=== PATIENT | female | born 1930 | race Caucasian/White ===

== ENCOUNTER 2018-08-14 06:43 | Emergency (ER) | payer MEDICARE, OTHER ==
[~2018-08-14] VITALS: Ht 162.6 cm; Wt 77.1 kg
[2018-08-14 07:06] VITALS: BP 162/84
[2018-08-14] MEDS ORDERED: TRAZODONE HCL300 MG ORAL (07:12)
[2018-08-14] MEDS ORDERED: AQUAPHOR OINTM396 GM TP (07:12)
[2018-08-14] MEDS ORDERED: NIZORAL 2% C1 APPLIC TOPIC (07:12)
[2018-08-14] MEDS ORDERED: KENALOG-4040 MG/ML IARTIC (07:12)
[2018-08-14] MEDS ORDERED: PLAVIX75 MG ORAL (07:12)
[2018-08-14] MEDS ORDERED: NEOSPORIN + P14.2 GM TP (07:12)
[2018-08-14] MEDS ORDERED: ROBAFEN DM CGH118 ML MC (07:12)
[2018-08-14] MEDS ORDERED: IMODIUM A-1 MG/7.5 M PO (07:12)
[2018-08-14] MEDS ORDERED: LEXAPRO5 MG ORAL (07:12)
[2018-08-14] MEDS ORDERED: VITAMIN B125000 MCG PO (07:12)
[2018-08-14] MEDS ORDERED: TYLENOL EXTRA500 MG ORAL ×2 (07:12→09:45)
[2018-08-14] MEDS ORDERED: LORATADINE10 M2 PO (07:12)
[2018-08-14] MEDS ORDERED: MEDROL DOSEPAK4 MG ORAL (07:12)
[2018-08-14] MEDS ORDERED: HYDROCORTISONE30 G2 TP (07:12)
[2018-08-14] MEDS ORDERED: NYSTATIN15 G2 TP (07:12)
[2018-08-14] MEDS ORDERED: VITAMIN D400 INTLU ORAL (07:12)
[2018-08-14] MEDS ORDERED: VOLTAREN100 G1 TP (07:12)
--- NOTE | 2018-08-14 07:20 | Emergency Room Report ---
History of Present Illness General Chief Complaint: Multiple Trauma/Fall Source: Medical Record Present Illness HPI 87-year-old female presents ED for evaluation. Patient brought in by EMS for fall. Occurred today this morning at [facility]. Witnessed by nursing staff. Patient complaining of right wrist and upper extremity pain. Noted to fall on her back. Unclear patient sustained head injury. Patient has dementia. Unable to recall what happened. Denies any headache. Denies any chest pain or shortness of breath. Denies any abdominal pain. Denies any dizziness or weakness. No other aggravating relieving factors. Denies any other associated symptoms Allergies: Coded Allergies: No Known Allergies (Unverified , 08/14/18) Patient History Past Medical History: HTN, ME, CAD, CVA/TIA, dementia, psych hx Past Surgical History: none Pertinent Family History: none Social History: Denies: smoking, alcohol use, drug use Last Menstrual Period: n.a Now: No Immunizations: UTD Reviewed Nursing Documentation: PMH: Agreed; PSxH: Agreed Nursing Documentation-PMH Past Medical History: No Stated History Hx Cardiac Problems: Yes - CAD, Mi Hx Hypertension: Yes Hx Gastrointestinal Problems: Yes - G Hx Neurological Problems: Yes - Depression, Insomnia, Fatigue Hx Cerebrovascular Accident: Yes Review of Systems All Other Systems: limited Physical Exam Vital Signs Date Time Temp Pulse Resp B/P (MAP) Pulse Ox O2 Delivery O2 Flow Rate FiO2 08/14/18 06:45 97.5 64 16 162/84 98 Room Air Sp02 EP Interpretation: reviewed, normal General Appearance: no apparent distress, alert, GCS 15, non-toxic Head: normocephalic, atraumatic Eyes: bilateral eye normal inspection, bilateral eye PERRL ENT: normal ENT inspection Neck: full range of motion, no bony tend, supple/symm/no masses Respiratory: chest non-tender, lungs clear, normal breath sounds, speaking full sentences Cardiovascular #1: regular rate, rhythm, no edema Gastrointestinal: normal bowel sounds, non tender, soft, non-distended, no guarding, no rebound Rectal: deferred Genitourinary: no CVA tenderness Musculoskeletal: tender - R wrist Neurologic: other - dementia Psychiatric: other - dementia Skin: normal inspection Lymphatic: normal inspection Medical Decision Making Diagnostic Impression: Primary Impression: Wrist fracture Qualified Codes: S62.101A - Fracture of unspecified carpal bone, right wrist, initial encounter for closed fracture Additional Impression: Multiple injuries due to trauma ER Course Hospital Course 87 yo F presents with R wrist pain, s/p fall Differential diagnoses include: Fracture, dislocation, sprain, contusion Clinical course Patient placed on stretcher. After initial history and physical, I ordered CT and xrays xrays R wrist shows nondisplaced rx. CTs ok placed in wrist splint. safe for discharge back to SNF Diagnosis -wrist fx, multiple injuries due to trauma Stable and discharged to SNF with prescription for tylenol. apply ice, keep elevated. weight bear as tolerated. Followup with PMD. Return to ED if symptoms recur or worsen Other X-Ray Diagnostic Results Other X-Ray Diagnostic Results #1: X-Ray ordered: R wrist # of Views/Limited Vs Complete: 3 View Indication: Pain EP Interpretation: Yes Interpretation: no dislocation, other - fx Impression: Other - fx Electronically Signed by: Electronically signed by Bakari Molina MD Other X-Ray Diagnostic Results #2: X-Ray ordered: R forearm # of Views/Limited Vs Complete: 3 View Indication: Pain EP Interpretation: Yes Interpretation: no dislocation, no soft tissue swelling, no fractures Impression: No acute disease Electronically Signed by: Electronically signed by Bakari Molina MD Other X-Ray Diagnostic Results #3: X-Ray ordered: R elbow # of Views/Limited Vs Complete: 3 View Indication: Pain EP Interpretation: Yes Interpretation: no dislocation, no soft tissue swelling, no fractures Impression: No acute disease Electronically Signed by: Electronically signed by Bakari Molina MD CT/MRI/US Diagnostic Results CT/MRI/US Diagnostic Results #1: Imaging Test Ordered: CT head Impression no acute process CT/MRI/US Diagnostic Results #2: Imaging Test Ordered: CT T spine Impression no acute process CT/MRI/US Diagnostic Results #3: Imaging Test Ordered: CT L spine Impression no acute process Last Vital Signs Date Time Temp Pulse Resp B/P (MAP) Pulse Ox O2 Delivery O2 Flow Rate FiO2 08/14/18 07:06 97.5 59 16 162/84 98 Room Air Status: improved Disposition: XFER SNF Condition: Stable Scripts Acetaminophen* (TYLENOL EXTRA STRENGTH*) 500 Mg Tablet 500 MG ORAL Q8H PRN for Prn Headache/Temp > 101, #30 TAB 0 Refills Prov: Bakari Molina MD 08/14/18 Bakari Molina MD Aug 14, 2018 07:20
--- NOTE | 2018-08-14 08:31 | Diagnostic Imaging Report ---
EXAM: CT Head Without Intravenous Contrast CLINICAL HISTORY: 87-year-old female status post fall, pain. TECHNIQUE: Axial computed tomography images of the head/brain without intravenous contrast. Coronal reformatted images were created and reviewed. CTDI is 70.53 mGy and DLP is 1425 mGy-cm. One or more of the following dose reduction techniques were used: automated exposure control, adjustment of the mA and/or kV according to patient size, use of iterative reconstruction technique. COMPARISON: None. FINDINGS: Artifacts: Mild motion artifact. Brain: No acute intracranial hemorrhage. Tiny hyperdense probable colloid cyst in the region of the anterior superior third ventricle. Old left caudate/external capsule small infarction with associated encephalomalacia and volume loss. Moderate atrophy and probable chronic small vessel ischemia. Ventricles: Unremarkable. Bones/joints: Possible old right nasal bone fracture. Soft tissues: Unremarkable. Sinuses: Mild left sphenoid sinus mucosal thickening. Mastoid air cells: Unremarkable as visualized. IMPRESSION: No acute intracranial hemorrhage or skull fracture.
[2018-08-14 09:02] VITALS: BP 131/73
--- NOTE | 2018-08-14 09:21 | Diagnostic Imaging Report ---
EXAM: CT Thoracic Spine Without Intravenous Contrast CLINICAL HISTORY: 87-year-old female with pain, status post fall. TECHNIQUE: Axial computed tomography images of the thoracic spine without intravenous contrast. Comment thoracic and lumbar spine CTDI is 49.98 mGy and DLP is 3006 mGy-cm. One or more of the following dose reduction techniques were used: automated exposure control, adjustment of the mA and/or kV according to patient size, use of iterative reconstruction technique. COMPARISON: No relevant prior studies available. FINDINGS: Vertebrae: Unremarkable. Thoracic vertebral body heights are preserved. No acute fracture. Normal alignment. Discs/spinal canal/neural foramina: Mild multilevel degenerative disc space loss throughout the thoracic spine. Annular calcifications in the mitral valve. No spinal canal stenosis. Soft tissues: Unremarkable. Vasculature: Atherosclerotic calcifications in the aortic arch and descending thoracic aorta. No aneurysm. Lungs: Subcentimeter calcified granuloma in the right middle lobe. Mild dependent atelectasis in bilateral lungs. Heart: Coronary artery calcifications. Gallbladder and bile ducts: Cholelithiasis without gallbladder wall thickening or ductal dilatation. IMPRESSION: 1. No evidence of fracture or malalignment in the thoracic spine. 2. Mild multilevel degenerative disc space loss throughout the thoracic spine. 3. Annular calcifications in the mitral valve. 4. Coronary artery calcifications. EXAM: CT Lumbar Spine Without Intravenous Contrast CLINICAL HISTORY: 87-year-old female with pain, status post fall. TECHNIQUE: Axial computed tomography images of the lumbar spine without intravenous contrast. Combined thoracic and lumbar spine CTDI is 49.98 mGy and DLP is 3006 mGy-cm. One or more of the following dose reduction techniques were used: automated exposure control, adjustment of the mA and/or kV according to patient size, use of iterative reconstruction technique. COMPARISON: No relevant prior studies available. FINDINGS: Vertebrae: Age indeterminate anterior compression deformity of L1 with approximately 40% anterior height loss. Approximately 4 mm bony retropulsion into the spinal canal causing mild central canal stenosis. Age indeterminate anterior compression deformity of L2 with approximately 20% anterior height loss. Approximately 3 mm bony retropulsion into spinal canal causing mild central canal stenosis. Grade 1 anterolisthesis of L4 relative to L5 with 5 mm offset. Discs/spinal canal/neural foramina: Multilevel degenerative changes throughout the visualized spine with disc space loss and endplate osteophytes. Soft tissues: Unremarkable. Vasculature: Infrarenal abdominal aortic aneurysm with maximum diameter of 3.6 x 3.5 cm. Atherosclerotic calcifications throughout the abdominal aorta and its proximal branches. Gallbladder and bile ducts: Cholelithiasis without gallbladder wall thickening or ductal dilatation. Kidneys and ureters: 3.7 cm simple-appearing cortical cyst in the right lower renal pole. 3 mm nonobstructive stone in the right mid kidney. Stomach and bowel: Mild colonic diverticulosis without evidence of acute inflammation. Reproductive: 4.8 x 3.3 cm simple appearing left ovarian cyst and 3.6 x 2.5 cm simple-appearing right ovarian cyst. Uterus is not visualized and may be surgically absent. IMPRESSION: 1. Age indeterminate anterior compression deformity of L1 with approximately 40% anterior height loss. Approximately 4 mm bony retropulsion into the spinal canal causing mild central canal stenosis. 2. Age indeterminate anterior compression deformity of L2 with approximately 20% anterior height loss. Approximately 3 mm bony retropulsion into spinal canal causing mild central canal stenosis. 3. Grade 1 anterolisthesis of L4 relative to L5 with 5 mm offset. 4. Infrarenal abdominal aortic aneurysm with maximum diameter of 3.6 x 3. 5 cm. ACR White Paper guidelines (Khosa, et al. JACR 2013; 10(10):789- 94) suggest abdomen/pelvis CT or MR imaging follow-up in 2 years. 5. Cholelithiasis without gallbladder wall thickening or ductal dilatation. 6. 4.8 x 3.3 cm simple appearing left ovarian cyst and 3.6 x 2.5 cm simple-appearing right ovarian cyst. ACR White Paper guidelines (Han, et. al. JACR 2013; 10(9):675-681) suggest further evaluation with nonemergent pelvic ultrasound. 7. 3.7 cm simple-appearing cortical cyst in the right lower renal pole. 8. 3 mm nonobstructive stone in the right mid kidney. 9. Mild colonic diverticulosis without evidence of acute inflammation.
--- NOTE | 2018-08-14 09:35 | Diagnostic Imaging Report ---
EXAM: XR Right Elbow Complete, 3 or More Views CLINICAL HISTORY: PAIN TECHNIQUE: Frontal, lateral and oblique views of the right elbow. COMPARISON: No relevant prior studies available. FINDINGS: Bones/joints: No visible displaced fracture. No dislocation. No osseous erosions. Mild degenerative joint space loss and marginal osteophytes. No abnormal elevation of the elbow fat pads. Soft tissues: Unremarkable. No radiodense foreign bodies. No soft tissue gas lucencies. IMPRESSION: No evidence of acute fracture or dislocation. Mild degenerative changes at the elbow joint.
--- NOTE | 2018-08-14 09:36 | Diagnostic Imaging Report ---
EXAM: XR Right Forearm, 2 Views CLINICAL HISTORY: PAIN TECHNIQUE: Frontal and lateral views of the right forearm. COMPARISON: Right wrist x-rays dated 08/14/18 FINDINGS: Bones/joints: Minimally displaced and comminuted distal radial intra- articular fracture. Minimally displaced avulsion fracture of the ulnar styloid process. Mild degenerative narrowing of the thumb carpometacarpal joint and the radiocarpal joint. Soft tissues: Soft tissue swelling overlying the distal forearm and the wrist. Vasculature: Vascular calcifications along the volar aspect of the distal forearm and wrist. IMPRESSION: 1. Minimally displaced and comminuted distal radial intra-articular fracture. 2. Minimally displaced avulsion fracture of the ulnar styloid process. 3. Soft tissue swelling overlying the distal forearm and the wrist.
--- NOTE | 2018-08-14 09:39 | Diagnostic Imaging Report ---
EXAM: XR Right Wrist Complete, 3 or More Views CLINICAL HISTORY: PAIN TECHNIQUE: Frontal, lateral and oblique views of the right wrist. COMPARISON: Right forearm x-rays dated 08/14/18 FINDINGS: Bones/joints: Minimally displaced comminuted distal radial intra- articular fracture. Minimally displaced avulsion fracture of the ulnar styloid process. Degenerative joint space loss and marginal osteophytes at the carpometacarpal joints, most prominently at the thumb, and degenerative narrowing at the radiocarpal joint and the visualized interphalangeal joints. Remote healed fracture deformity of the fifth metacarpal diaphysis. Soft tissues: Soft tissue swelling overlying the wrist and distal forearm. No radiopaque foreign body. Vasculature: Atherosclerotic calcifications anteriorly at the wrist and distal forearm. IMPRESSION: 1. Minimally displaced comminuted distal radial intra-articular fracture. 2. Minimally displaced avulsion fracture of the ulnar styloid process. 3. Soft tissue swelling overlying the wrist and distal forearm. 4. Remote healed fracture deformity of the fifth metacarpal diaphysis.
[2018-08-14 10:37] VITALS: BP 135/78
== END 2018-08-14 10:37 ==
LOC: EDBD 06:43 → EMR 07:19
DX: S62.101A Fracture of unspecified carpal bone, right wrist, initial encounter for closed fracture (principal); W19.XXXA Unspecified fall, initial encounter; Y92.129 Unspecified place in nursing home as the place of occurrence of the external cause; Y99.8 Other external cause status; M25.521 Pain in right elbow; M79.631 Pain in right forearm; R51 Headache; M54.5 Low back pain; M54.6 Pain in thoracic spine; F03.90 Unspecified dementia, unspecified severity, without behavioral disturbance, psychotic disturbance, mood disturbance, and anxiety; I10 Essential (primary) hypertension; I25.2 Old myocardial infarction; Z86.73 Personal history of transient ischemic attack (TIA), and cerebral infarction without residual deficits; I25.10 Atherosclerotic heart disease of native coronary artery without angina pectoris; G47.00 Insomnia, unspecified; Z87.19 Personal history of other diseases of the digestive system; F32.9 Major depressive disorder, single episode, unspecified
CPT/HCPCS: 70450; 72128; 72131; 99284